=== PATIENT | female | born 1970 | race Caucasian/White ===

== ENCOUNTER 2019-08-27 06:12 | Inpatient (IN) | payer OTHER ==
[~2019-08-27] VITALS: Ht 170.2 cm; Wt 112.5 kg
[2019-08-27 06:37] VITALS: BP 118/71
[2019-08-27] MEDS ORDERED: METFORMIN HYDR500 M1 PO (06:59)
[2019-08-27] MEDS ORDERED: STEGLATRO5 MG PO (07:00)
[2019-08-27] MEDS ORDERED: PAXIL40 M1 PO (07:00)
[2019-08-27] MEDS ORDERED: ACT15 PO (07:00)
[2019-08-27] MEDS ORDERED: GOOD NEIGHBOR P20 M2 PO (07:01)
[2019-08-27] MEDS ORDERED: BUSPAR5 MG PO (07:01)
[2019-08-27] MEDS ORDERED: CALCITRIOL0.5 MCG PO (07:02)
[2019-08-27] MEDS ORDERED: CATAPRES0.1 MG PO (07:02)
[2019-08-27] MEDS ORDERED: COLACE100 MG PO (07:03)
[2019-08-27] MEDS ORDERED: NEURONTIN100 MG PO (07:04)
[2019-08-27] MEDS ORDERED: NOR10T PO (07:04)
[2019-08-27] MEDS ORDERED: CLARITIN10 MG PO (07:05)
[2019-08-27] MEDS ORDERED: TRAZODONE50 M1 PO (07:06)
[2019-08-27] MEDS ORDERED: ZANAFLEX CAPSULE4 MG PO (07:07)
[2019-08-27] MEDS ORDERED: AMITIZA8 MC1 PO (07:08)
[2019-08-27] MEDS ORDERED: LOT10 PO (07:09)
[2019-08-27] MEDS ORDERED: LEVOTHYROXINE0.05 M2 PO (07:10)
[2019-08-27] MEDS ORDERED: CICLOPIROX OLAM0.77% (07:10)
--- NOTE | 2019-08-27 12:17 | NUR ---
RECEIVED PATIENT POSTOP FOR TOTAL LEFT KNEE REPLACEMENT VIA BED. IV TO LAC INTACT AND PATENT. LT KNEE DRESSING CDI WITH POLAR CARE IN PLACE, NO FEELING TO TOES BUT ABLE TO MOVE LEG. ORIENTED TO ROOM AND CALL BROTHER MACK SEGOVIA AT BEDSIDE.
[2019-08-27 12:49] VITALS: BP 98/54
--- NOTE | 2019-08-27 14:00 | NUR ---
PATIENT AWAKEN ASKING FOR WATER, REPORT NAUSEA IS BETTER. JELLO AND ICE WATER OFFERED. BROTHER REMAIN AT BEDSIDE. CALL LIGHT WITHIN REACH.
--- NOTE | 2019-08-27 16:14 | NUR ---
PATIENT AWAKE/ALERT IN BED REPORT PAIN IS 4/10 TOLERABLE REFUSED PAIN MED. PER PATIENT UP WITH PT TO BATHROOM, IVF STARTED AT 80ML/HR AND ANCEF 1GM IVPB INFUSING AT 100ML/HR, PUDDING AND SANDRA CRACKERS OFFERED FOR REQUEST, CALL LIGHT WITHIN REACH. NEED MET.
[2019-08-27 16:37] VITALS: BP 99/58
--- NOTE | 2019-08-27 17:09 | NUR ---
PATIENT AWAKE IN BED ON THE PHONE, PAIN IS 5/10 LT KNEE MEDICATED W/ NORCO 10/325MG PO AND METFORMIN 500MG PO. NEEDS MET. CALL LIGHT WITHIN REACH.
--- NOTE | 2019-08-27 18:44 | NUR ---
PATIENT SAT UP IN BED NO COMPLAIN, PAIN 4/10 TOLERABLE. [facility] REFILL WITH NEW ICE, PATIENT TOLERATED CCHO DIET, NO NAUSEA REPORTED, CALL LIGHT WITHIN REACH.
[2019-08-27 20:12] VITALS: BP 99/53
--- NOTE | 2019-08-28 00:39 | NUR ---
RECEIVED REPORT FROM JUSTYN RAMIREZ. PT AAOX4 AND DENIES HEADACHE OR DIZZINESS AT THIS TIME. PT IS MED-SURG AND DENIES CHEST PAIN OR PRESSURE AT THIS TIME. PT PULSES PALPABLE AND CAP REFILL <3 SEC. PT LUNG SOUNDS CTA ON N/C 2LPM. PT BREATHING EVEN AND UNLABORED. PT ABD SOFT AND ROUND. PT BOWEL SOUNDS ACTIVE X4. PT DENIES N/V/D AT THIS TIME. PT CALDERON CATH D/C 08/27. PT HAS GENERALIZED WEAKNESS AND IS S/P 08/27 LEFT TOTAL KNEE REPLACEMENT. 1 LEFT KNEE INCISION WITH DERMABOND, MELIPLEX, DEBORAH BANDAGE WITH POLAR CARE IN PLACE. PT IV IS PATENT AND INTACT. CALL LIGHT WITHIN REACH. BED IN LOWEST POSITION. SIDE RAILS X2 UP. WILL CONTINUE TO MONITOR.
--- NOTE | 2019-08-28 01:45 | NUR ---
PT SLEEPING. BREATHING EVEN AND UNLABORED. NO ACUTE DISTRESS NOTED. CALL LIGHT WITHIN REACH. BED IN LOWEST POSITION. SIDE RAILS X2 UP. WILL CONTINUE TO MONITOR.
--- NOTE | 2019-08-28 03:50 | NUR ---
PT SLEEPING. BREATHING EVEN AND UNLABORED. NO ACUTE DISTRESS NOTED. CALL LIGHT WITHIN REACH. BED IN LOWEST POSITION. SIDE RAILS X2 UP. WILL CONTINUE TO MONITOR.
--- NOTE | 2019-08-28 05:15 | NUR ---
IV SITE IN LAC LEAKING. D/C IV, CATH INTACT. NEW IV INSERTION INTO RFA 22G. GOOD BLOOD RETURN. FLUSHED 10ML NS. NO S/S OF REDNESS, PAIN, OR SWELLING NOTED. WILL CONTINUE TO MONITOR.
[2019-08-28 05:38] VITALS: BP 100/53
--- NOTE | 2019-08-28 06:19 | NUR ---
PT SLEPT THROUGHOUT MOST OF THE NIGHT. NO ACUTE DISTRESS NOTED. PT COMPLIED WITH NURSING CARE THROUGHOUT THE SHIFT. COMFORT AND SAFETY MEASURES MAINTAINED. ALL NEEDS AND CONCERNS ADDRESSED. IVF INFUSING WELL. IV INTACT AND PATENT. CALL LIGHT WITHIN REACH. BED IN LOWEST POSITION. SIDE RAILS X2 UP. WILL CONTINUE TO MONITOR. WILL ENDORSE CARE TO DAY SHIFT NURSE.
[2019-08-28 06:46] LABS: CALCIUM 9.1 mg/dL (8.5-10.1); CARBON DIOXIDE 27.1 mmol/L (21-32); CREATININE SERUM 1.2 mg/dL (0.6-1.0); POTASSIUM SERUM 4.6 mmol/L (3.5-5.1)
--- NOTE | 2019-08-28 07:45 | NUR ---
RECEIVED PT IN BED. ASSESSED AND DOCUMENTED. STABLE. PT SAID SHE HAS MILD SORENESS AT LEFT KNEE INCISION AREA. SAFTEY PRECAUTIONS ARE IN PLACE. WILL MONITOR.
[2019-08-28 07:58] LABS: BASOPHIL % 0 % (0-2); PLATELET COUNT 248 x10^3mcL (130-400); RED CELL DISTRIBUTION WIDTH 14.7 % (11.5-14.5)
--- NOTE | 2019-08-28 08:30 | NUR ---
CAME TO SAW THE PT AND INFORMED HER HE WILL DISCHARGE PT TODAY.
[2019-08-28 08:32] VITALS: BP 104/59
[2019-08-28 08:41] VITALS: BP 104/59
--- NOTE | 2019-08-28 09:13 | NUR ---
P.T CAME TO AMBULATE PT. PT AMBULATED WITH WALKER, TOLERATED WELL. STATED MODERATED PAIN IN THE INCISION SITE AT LEFT KNEE,11/25. ADMINISTERED NORCO PO ORDERED AND WILL REASSESS. GAVE COMFORTABLE POSITION.
--- NOTE | 2019-08-28 10:13 | NUR ---
PT SITTING UP IN THE CHAIR, DENIES ANY PAIN THIS TIME. STABLE.
--- NOTE | 2019-08-28 12:00 | NUR ---
PT'S BROTHER ARRIVED TO [employer]PA[employer] CREW PERSON PT. DISCHARGE INSTRUCTIONS GIVEN. PB SIGNED AND SENT WITH PT. IV REMOVED AND DRESSING APPLIED. DENIES ANY PAIN THIS TIME, STABLE. [employer]UC[employer] BUS DRIVER WHEELED PT DOWN TO LOBBY ACCOMPANIED WITH BROTHER, PT TOOK POLAR ICE CARE WITH HER, INSTRUCTED HOW TO USE POLAR ICE BOX. PT DC HOME.
== END 2019-08-28 12:24 | disposition home or self-care (01) | DRG 302 ==
LOC: MU 06:12 → DU 07:30 → MU 13:02
PROVIDERS: ADMIT Orthopaedic Surgery
PROC: 0SRD069 Replacement of Left Knee Joint with Oxidized Zirconium on Polyethylene Synthetic Substitute, Cemented, Open Approach (ICD-10-PCS; principal; 2019-08-27 07:30)
DX: M17.12 Unilateral primary osteoarthritis, left knee (principal); E03.9 Hypothyroidism, unspecified; E11.9 Type 2 diabetes mellitus without complications; I10 Essential (primary) hypertension; K21.9 Gastro-esophageal reflux disease without esophagitis; J45.909 Unspecified asthma, uncomplicated
CPT/HCPCS: 82962; 97116-GP; 97530-GP; C1776; G0378; J0690; J1100; J1885; J2250; J2270; J2405; J3010; J3490; J7030; Q0092